=== PATIENT | female | born 1980 | race Caucasian/White ===

== ENCOUNTER 2016-10-26 18:34 | Emergency (ER) | payer MEDICAID, OTHER ==
[~2016-10-26] VITALS: Ht 165.1 cm; Wt 72.6 kg
[~2016-10-26 18:34] MED LIST: LEVO75TA PO
[2016-10-26 18:45] VITALS: BP 139/107
== END 2016-10-26 19:38 | disposition home or self-care (01) ==
LOC: ER 18:35
DX: K08.89 Other specified disorders of teeth and supporting structures (principal); E03.9 Hypothyroidism, unspecified
CPT/HCPCS: 99283; A4606; Z7610